=== PATIENT | male | born 1995 | race Caucasian/White ===

== ENCOUNTER 2022-08-10 20:12 | Emergency (ER) | payer MEDICAID ==
[~2022-08-10] VITALS: Ht 188 cm; Wt 91.8 kg
[~2022-08-10 20:12] MED LIST: METO25 PO; NALO4SPR3 NASAL
[2022-08-10 21:24] LABS: BASOPHILS % (AUTO) 0.5 % (0.0-2.0); LYMPHOCYTES # (AUTO) 2.9 K/uL (1.0-4.8); LYMPHOCYTES % (AUTO) 42.6 % (22.0-44.0); MEAN CORPUSCULAR HEMOGLOBIN 31.6 pg (26.0-34.0); MEAN CORPUSCULAR HGB CONC 35.2 G/dL (31.0-37.0); MEAN CORPUSCULAR VOLUME 90 fL (80-100); MONOCYTES # (AUTO) 0.6 K/uL (0.1-1.0); MONOCYTES % (AUTO) 8.1 % (2.0-9.0); NEUTROPHILS # (AUTO) 3.3 K/uL (1.8-7.7); NEUTROPHILS % (AUTO) 47.8 % (40.0-70.0); PLATELET COUNT (AUTO) 215 K/uL (150-450); RED BLOOD CELL COUNT(AUTO) 4.12 MIL/uL (4.50-5.90); RED CELL DISTRIBUTION WIDTH 12.3 % (11.5-14.5)
[2022-08-10 21:32] LABS: ANION GAP 2 mmol/L (8-16); CALCIUM, TOTAL 9.2 mg/dL (8.8-10.5); CARBON DIOXIDE 33 mmol/L (22-29); CHLORIDE 103 mmol/L (98-107); CREATININE 0.96 mg/dL (0.60-1.30); GLUCOSE,RANDOM 77 mg/dL (70-110); POTASSIUM 3.8 mmol/L (3.5-5.1); SODIUM SERUM 138 mmol/L (136-145); UREA NITROGEN, BLOOD 12 mg/dL (7-18)
[2022-08-10 21:35] LABS: ALANINE AMINOTRANSFERASE 22 U/L (12-78); ALBUMIN 4.4 g/dL (3.4-5.0); ALKALINE PHOSPHATASE 80 U/L (46-116); ASPARTATE AMINOTRANSFERASE 22 U/L (15-37); BILIRUBIN,TOTAL 0.7 mg/dL (0.1-1.0); GLOMERULAR FILTR. RATE CALC > 60 mL/min (>60); TOTAL PROTEIN, SERUM 7.8 g/dL (6.4-8.2)
[2022-08-10] MEDS ORDERED: LORazepam 2 MG/ML VIAL IVP ONE (21:45)
[2022-08-10 22:00] VITALS: BP 119/74
== END 2022-08-10 22:19 | disposition left against medical advice (07) ==
LOC: EMS 20:12
DX: R07.9 Chest pain, unspecified (principal); Z53.21 Procedure and treatment not carried out due to patient leaving prior to being seen by health care provider
CPT/HCPCS: 93005; 80053; 84484; 85025; 36415; J2060